=== PATIENT | female | born 1965 | race American Indian/Alaskan Native ===

== ENCOUNTER 2019-07-12 12:34 | Emergency (ER) | payer SELFPAY ==
[2019-07-12 12:54] VITALS: BP 137/70
--- NOTE | 2019-07-12 13:03 | Event Note ---
ED Screening Note Date of service: 07/12/19 Time: 13:03 ED Screening Note: back pain since last night. This initial assessment/diagnostic orders/clinical plan/treatment(s) is/are subject to change based on patients health status, clinical progression and re- assessment by fellow clinical providers in the ED. Further treatment and workup at subsequent clinical providers discretion. Patient/guardian urged not to elope from the ED as their condition may be serious if not clinically assessed and managed. Initial orders include:
[2019-07-12 14:16] LABS: Bacteria,Urine 1+ /HPF (Negative); Bilirubin,Urine NEG (Negative); Blood,Urine NEG (Negative); Color,Urine Yellow (Yellow); Mucus,Urine FEW /HPF; Protein,Urine <15 mg/dL mg/dL (Negative); Urobilinogen,Urine < 2.0 mg/dL (<2.0); WBC,Urine < 1.0 /HPF (0.0-6.0)
--- NOTE | 2019-07-12 16:05 | Emergency Department Report ---
HPI - General Chief Complaint: Back Pain/Injury Time Seen by Provider: 07/12/19 13:02 - HPI HPI: 54 YO AA FEMALE [place]. COMES TO ER WITH R FLANK PAIN. SHE HAS HAD UTI IN THE PAST. PT HAS HX DM, ASTHMA AND HTN. HOME MEDS LANTUS ULTRAM HUMALOG ALBUTEROL LISINOPRIL ED Past Medical Hx - Past Medical History Hx Hypertension: Yes Hx CVA: No Hx Heart Attack/AMI: No Hx Congestive Heart Failure: No Hx Diabetes: Yes Hx Deep Vein Thrombosis: No Hx Asthma: Yes Additional medical history: eyes-cataracts-- CHRONIC KNEE PAIN - Surgical History Past Surgical History?: Yes Additional Surgical History: tubiligation - Family History Family history: no significant - Social History Smoking Status: Never Smoker Substance Use Type: None ED Review of Systems ROS: Stated complaint: SIDE/BACK PAIN Other details as noted in HPI Comment: All other systems reviewed and negative Physical Exam - Physical Exam Vital Signs: Vital Signs 07/12/19 12:44 Temperature 97.9 F Pulse Rate 80 Respiratory 18 Rate Blood Pressure 137/70 O2 Sat by Pulse 100 Oximetry Physical Exam: ALERT AND ORIENTED NO FOCAL DEF S1S2 LUNGS CTA ABD SNT ED Course Vital Signs 07/12/19 12:44 Temperature 97.9 F Pulse Rate 80 Respiratory 18 Rate Blood Pressure 137/70 O2 Sat by Pulse 100 Oximetry ED Medical Decision Making - Lab Data Result diagrams: 07/12/19 16:45 07/12/19 16:45 - Medical Decision Making Vital Signs 07/12/19 12:44 Temperature 97.9 F Pulse Rate 80 Respiratory 18 Rate Blood Pressure 137/70 O2 Sat by Pulse 100 Oximetry Lab Results 07/12/19 07/12/19 07/12/19 Range/Units 13:44 16:45 16:45 WBC 6.5 (4.5-11.0) K/mm3 RBC 4.65 (3.65-5.03) M/mm3 Hgb 11.9 (10.1-14.3) gm/dl Hct 36.3 (30.3-42.9) % MCV 78 L (79-97) fl MCH 26 L (28-32) pg MCHC 33 (30-34) % RDW 15.0 (13.2-15.2) % Plt Count 204 (140-440) K/mm3 VBG pH (7.320-7.420) Sodium (137-145) mmol/L Potassium (3.6-5.0) mmol/L Chloride (98-107) mmol/L Carbon Dioxide (22-30) mmol/L Anion Gap mmol/L BUN (7-17) mg/dL Creatinine (0.7-1.2) mg/dL Estimated GFR ml/min BUN/Creatinine Ratio % Glucose (65-100) mg/dL POC Glucose 354 H (70-105) Calcium (8.4-10.2) mg/dL Urine Color Yellow (Yellow) Urine Turbidity Clear (Clear) Urine pH 5.0 (5.0-7.0) Ur Specific [place] 1.025 (1.003-1.030) Urine Protein <15 mg/dl (Negative) mg/dL Urine Glucose (UA) >=500 (Negative) mg/dL Urine Ketones Neg (Negative) mg/dL Urine Blood Neg (Negative) Urine Nitrite Neg (Negative) Urine Bilirubin Neg (Negative) Urine Urobilinogen < 2.0 (<2.0) mg/dL Ur Leukocyte Esterase Neg (Negative) Urine WBC (Auto) < 1.0 (0.0-6.0) /HPF Urine RBC (Auto) 2.0 (0.0-6.0) /HPF U Epithel Cells (Auto) 1.0 (0-13.0) /HPF Urine Bacteria (Auto) 1+ (Negative) /HPF Urine Mucus Few /HPF 07/12/19 07/12/19 Range/Units 16:45 16:45 WBC (4.5-11.0) K/mm3 RBC (3.65-5.03) M/mm3 Hgb (10.1-14.3) gm/dl Hct (30.3-42.9) % MCV (79-97) fl MCH (28-32) pg MCHC (30-34) % RDW (13.2-15.2) % Plt Count (140-440) K/mm3 VBG pH 7.263 L (7.320-7.420) Sodium 138 (137-145) mmol/L Potassium 3.9 (3.6-5.0) mmol/L Chloride 101.7 (98-107) mmol/L Carbon Dioxide 26 (22-30) mmol/L Anion Gap 14 mmol/L BUN 15 (7-17) mg/dL Creatinine 0.9 (0.7-1.2) mg/dL Estimated GFR > 60 ml/min BUN/Creatinine Ratio 17 % Glucose 329 H (65-100) mg/dL POC Glucose (70-105) Calcium 8.8 (8.4-10.2) mg/dL Urine Color (Yellow) Urine Turbidity (Clear) Urine pH (5.0-7.0) Ur Specific [place] (1.003-1.030) Urine Protein (Negative) mg/dL Urine Glucose (UA) (Negative) mg/dL Urine Ketones (Negative) mg/dL Urine Blood (Negative) Urine Nitrite (Negative) Urine Bilirubin (Negative) Urine Urobilinogen (<2.0) mg/dL Ur Leukocyte Esterase (Negative) Urine WBC (Auto) (0.0-6.0) /HPF Urine RBC (Auto) (0.0-6.0) /HPF U Epithel Cells (Auto) (0-13.0) /HPF Urine Bacteria (Auto) (Negative) /HPF Urine Mucus /HPF LABS NOTED UA NOTED; NO UTI PT THOUGHT IN BG GIVEN 1L NS AND INSULIN WITH DEC IN BG AMBULATORY NON TOXIC NON ILL APPEARING DC HOME WITH DC PLAN OF CARE PT VERBALIZES UNDERSTANDING SHE HAS HER MEDS AND HAS BEEN INSTRUCTED ON LOCAL FOLLOW UP - Differential Diagnosis RO DKA Critical care attestation.: If time is entered above; I have spent that time in minutes in the direct care of this critically ill patient, excluding procedure time. ED Disposition Clinical Impression: IDDM (insulin dependent diabetes mellitus), Hyperglycemia Disposition: DC-01 TO HOME OR SELFCARE Is pt being admited?: No Does the pt Need Aspirin: No Condition: Stable Additional Instructions: DIABETIC DIET HYDRATE WELL WITH WATER CONTINUE HOME MEDS FOLLOW UP WITH PCP RIVERA REFERRAL BELOW FOR LOCAL PCP Referrals: [facility] [Outside] - 3-5 Days Time of Disposition: 19:09
[2019-07-12] MEDS ORDERED: INSULIN REGULAR, HUMAN 100 UNITS/1 ML IV ONE (16:39)
[2019-07-12] MEDS ORDERED: SODIUM CHLORIDE 0.9% 1000 ML 1,000 ML IV ONE (16:45)
[2019-07-12 17:03] LABS: Hematocrit 36.3 % (30.3-42.9); Hemoglobin 11.9 gm/dl (10.1-14.3); Mean Corpuscular HGB Conc 33 % (30-34); Mean Corpuscular Volume 78 fl (79-97); Platelet Count 204 K/mm3 (140-440); Red Blood Count 4.65 M/mm3 (3.65-5.03)
[2019-07-12 17:22] LABS: BUN/Creatinine Ratio 17; Blood Urea Nitrogen 15 mg/dL (7-17); Calcium 8.8 mg/dL (8.4-10.2); Hemolysis Index 2
== END 2019-07-12 19:20 | disposition home or self-care (01) ==
LOC: ED 12:34
DX: E11.65 Type 2 diabetes mellitus with hyperglycemia (principal); I10 Essential (primary) hypertension; M25.569 Pain in unspecified knee; G89.29 Other chronic pain; J45.909 Unspecified asthma, uncomplicated; Z98.51 Tubal ligation status
CPT/HCPCS: 36415; 80048; 81001; 82805; 82962; 85027; 96361; 96374; J1815